=== PATIENT | female | born 1945 | race Two or more races ===

== ENCOUNTER 2021-10-18 18:37 | Emergency (ER) | payer OTHER ==
[~2021-10-18] VITALS: Ht 172.7 cm; Wt 94.3 kg
[2021-10-18 19:41] LABS: Basophils # (auto) 0.1 10 ^3/uL (0-0.2); Eosinophils # (auto) 0.3 10 ^3/uL (0-0.8); Eosinophils % (auto) 2.2 % (0.0-7.0); Hematocrit 32.7 % (36.0-46.0); Hemoglobin 10.7 g/dL (12.2-16.2); Lymphocytes # (auto) 1.2 10 ^3/uL (0.4-5.4); Lymphocytes % (auto) 8.7 % (10.0-50.0); Mean Corpuscular Hemoglobin 32.5 pg (28.0-32.0); Mean Corpuscular Hgb Conc. 32.8 g/dL (32.0-36.0); Monocytes # (auto) 0.6 10 ^3/uL (0-1.3); Monocytes % (auto) 4.7 % (0.0-12.0); Neutrophils # (auto) 11.4 10 ^3/uL (1.6-8.6); Neutrophils % (auto) 83.4 % (37.0-80.0); Red Blood Cells 3.31 10^6/uL (4.0-5.20); Red Cell Distribution Width 14.6 % (11.8-14.3); White Blood Cell 13.7 10^3/uL (4.4-10.8)
[2021-10-18] MEDS ORDERED: SODIUM CHLORIDE 0.9% 500 ML IV ONE (19:45)
[2021-10-18 19:59] LABS: Albumin 2.4 g/dL (3.4-5.0); BUN/Creatinine Ratio 18.1; Calcium 7.7 mg/dL (8.5-10.1); Potassium 3.6 mmol/L (3.5-5.1)
[2021-10-18 20:08] LABS: Bilirubin, Total 0.6 mg/dL (0.2-1.0); Total Protein 5.7 g/dL (6.4-8.2)
[2021-10-18] MEDS ORDERED: VENL37.572 PO (20:33)
[2021-10-18] MEDS ORDERED: FURO40TA4 PO (20:33)
[2021-10-18] MEDS ORDERED: AMIO200T33 PO (20:33)
[2021-10-18] MEDS ORDERED: TRAZ50TA2 PO (20:33)
[2021-10-18] MEDS ORDERED: LISI2.5T47 PO (20:33)
[2021-10-18] MEDS ORDERED: METO-159 PO (20:33)
[2021-10-18] MEDS ORDERED: ESTR1TAB6 PO (20:33)
[2021-10-18] MEDS ORDERED: CEPH500C PO (20:33)
[2021-10-18] MEDS ORDERED: GABA300C10 PO (20:33)
[2021-10-19] MEDS ORDERED: ALBUTEROL SULF 2.5 MG/0.5ML(0.5%) NEB SOLN NEB ONE (00:45)
[2021-10-19] MEDS ORDERED: MORPHINE SULFATE 4 MG/ML SYR/VIAL IV ONE (04:30)
[2021-10-19 06:14] VITALS: BP 115/79
== END 2021-10-19 06:49 | disposition short-term general hospital (02) ==
LOC: EDBD 18:37 → ER 18:37
DX: I95.9 Hypotension, unspecified (principal); R55 Syncope and collapse; I48.91 Unspecified atrial fibrillation; Z20.822 Contact with and (suspected) exposure to COVID-19
CPT/HCPCS: 36415; 70450; 71045; 80053; 83880; 84484; 85025; 87426; 93005; 94640; 96361; 96374; 99285; J2270; J7040